=== PATIENT | male | born 1965 | race African-American/Black ===

== ENCOUNTER 2023-06-27 09:23 | Emergency (ER) | payer MEDICAID, SELFPAY ==
[2023-06-27 09:25] VITALS: BP 169/112; PULSE 64; RESP 16; TEMP 36.4; O2SAT 100; BMI 24.1
--- NOTE | 2023-06-27 09:41 | EDS_ITS ---
HPI History of Present Illness Chief Complaint: Back Detail of Chief Complaint: Right lower back pain Informant: patient Onset/Context/Timing Onset: Days Context: Gradual Onset Timing: Continuous Quality: Dull and Aching Location: Lumbar and Buttock (Right leg) Current Severity: Mild Maximum Severity: Moderate Worsened by: improves with Movement, Ambulation and Bending Relieved by: Nothing Associated Symptoms Associated Symptoms: Numbness (Numbness around the right knee denies radicular pain); Negative for Radiation to Right Leg, Radiation to Left Leg, Fever, Abdominal Pain, Dysuria, Unable to Ambulate, Unable to Transfer, Urinary Retention, Urinary Incontinence, Constipation or Fecal Incontinence Narrative Narrative: Patient is a 57-year-old male with history of hypertension who presents with right lower back pain. He has no history of trauma. He had a total hip arthroplasty performed May 27 at outside facility. He presents now because of right lower back pain for the past several days. He is taken ibuprofen sporadically with no improvement. He denies bowel bladder dysfunction. He denies saddle paresthesia or anesthesia. He denies radicular pain. Denies foot drop. Denies fever or chills. Prior similar symptoms: No Recent Illness/Hospitalization: Yes (Left total hip arthroplasty) [facility] Medical History (Updated 06/27/23 @ 11:[address] Austin Mayberry MD) Hypertension Home Medications hydrocodone-acetaminophen 5-325mg 5mg-325mg 1 tab PO Q6H PRN PRN Pain 3 days #10 TABLETS 06/27/23 [Rx Last Taken Unknown] Allergy/AdvReac Type Severity Reaction Status Date / Time No Known Allergies Allergy Verified 06/27/23 09:27 Surgical History (Updated 06/27/23 @ 11:[address] Austin Mayberry MD) History of left hip replacement Social History (Updated 06/27/23 @ 09:[address] Austin Mayberry MD) household members: significant other Smoking Status: Current every day smoker tobacco type: cigarettes ROS ROS ED Constitutional Constitutional ED: Denies chills, fever(s), subjective or sweats Eyes Eyes: Denies blurry vision, change in vision or diplopia ENT ENT ED: Denies ear pain, rhinorrhea or sore throat Cardiovascular Cardiovascular: Denies chest pain, palpitations or racing heartbeat Gastrointestinal Gastrointestinal: Denies abdominal pain Genitourinary Genitourinary ED: Denies dysuria, hematuria or urinary frequency Musculoskeletal Musculoskeletal: Reports back pain; Denies arthralgias, myalgias or neck pain Neurologic Neurologic: Reports paresthesias; Denies weakness Hematologic/Lymphatic Hematologic/Lymphatic: Denies easy bleeding or easy bruising EXAM Physical Exam Const Vital Signs: 06/27/23 09:25 Temperature 97.5 F L Temperature Source Temporal Pulse Rate 64 Respiratory Rate 16 Blood Pressure 169/112 H Blood Pressure Mean 131 Pulse Ox 100 Oxygen Delivery Method Room Air Positive well nourished and well developed Constitutional Narrative: Patient appears uncomfortable as he transfers his weight in bed to stand. General Appearance ED: well developed HEENT Reports moist mucous membranes HEENT Narrative: Head is normocephalic and atraumatic. Ears normal. Nares patent. Eyes PERRL and EOMs intact bilaterally General Eye ED: Negative for pale conjunctiva or scleral icterus Neck no lymphadenopathy, supple and no JVD Resp normal respiratory effort Cardio regular rate and regular rhythm GI normal to inspection, nondistended, normoactive bowel sounds, soft to palpation, non-tender, non-distended and no masses Back/Spine normal to inspection; Negative for no thoracic nor lumbar tenderness Back/Spine Narrative: EHL is intact bilateral. Able to stand on heels and toes. He is able to perform 1 legged squat on the right side. Left was not assessed since he had recent total hip arthroplasty. PT pulses palpable 1+. There is no jorge lymphadenopathy noted. Patient has reproducible back pain. Pain is on the right side. Patella and ankle reflex are 1+ and symmetric. General Back: Negative for CVA tenderness Cervical Spine: Negative for cervical spine tenderness Thoracic Spine / Upper Back: Negative for paraspinal muscle tenderness Lumbar Spine / Lower Back: ROM limited and straight leg raise negative bilaterally Extremity normal to inspection and no clubbing, cyanosis or edema Neuro oriented x3 and no sensory deficits noted Sensorium / Orientation: alert Motor Exam: strength 5/5 throughout Deep Tendon Reflexes: Rt Patellar (L4): 1+, Lt Patellar (L4): 1+, Rt Ankle (S1): 1+ and Lt Ankle (S1): 1+ Deep Tendon Reflexes Back: Rt Patellar (L4): 1+, Lt Patellar (L4): 1+, Rt Ankle (S1): 1+ and Lt Ankle (S1): 1+ Plantar Reflex: Downgoing: bilateral Psych mental status grossly normal Skin no rashes or lesions noted and no wounds MDM MDM MDM Narrative Medical decision making narrative: Patient has muscular back pain. Based on history and physical there is no concern for herniated disc, cauda equina epidural abscess etc. Patient was medicated with IV meds and will be reassessed. Treatment and Re-Evaluation Narrative: Patient was reassessed at approximately 1053. Patient's pain is improved. He is now pain-free. Plan is discharged home with appropriate pain medicine. Discharge Plan Triage Chief Complaint: Back ED Provider: Austin Mayberry Dx/Rx/DC Orders Clinical Impression: History of total left hip arthroplasty, Acute right-sided low back pain, Hypertension Instructions: ED Back Pain (Acute or Chronic) Prescriptions: New hydrocodone-acetaminophen [hydrocodone-acetaminophen] 5-325 mg tablet 1 tab PO Q6H PRN PRN (Reason: Pain) 3 Days Qty: 10 0RF Primary Care Provider: Care Physician,No Primary Referrals: Care Physician,No Primary [Primary Care Provider] - Doctor,Your [Non-Staff] - Activity Restrictions/Additional Instructions: Follow-up with your doctor if no improvement in 2 to 3 days. The name of your doctor is listed on your insurance card issued to you by [facility]. Apply ice to your right lower back 6-10 times a day Avoid activity that causes you pain Disposition Disposition: Home, Self Care
[2023-06-27] MEDS: Ondansetron 4 MG/2 ML Vial IV (09:51)
[2023-06-27] MEDS: Ketorolac 15 MG/ML Vial IV (09:52)
[2023-06-27] MEDS: Morphine 4 MG/ML Syringe IV (09:53)
== END 2023-06-27 11:36 | disposition home or self-care (01) ==
PROVIDERS: Emergency Provider Emergency Medicine; Visit Provider Emergency Medicine
DX: M54.50 Low back pain, unspecified (principal); F17.210 Nicotine dependence, cigarettes, uncomplicated; Z96.642 Presence of left artificial hip joint; I10 Essential (primary) hypertension
CPT/HCPCS: 96374; 96375; 99282; A4216; J2405